=== PATIENT | female | born 1960 | race Caucasian/White ===

== ENCOUNTER 2021-06-19 10:47 | Emergency (ER) | payer BC, OTHER ==
[2021-06-19] MEDS ORDERED: Lidocaine 1% PF 5 ML VIAL ONE (12:15)
== END 2021-06-19 13:35 | disposition home or self-care (01) ==
LOC: CSHERS 10:47
DX: S02.5XXA Fracture of tooth (traumatic), initial encounter for closed fracture (principal); S01.511A Laceration without foreign body of lip, initial encounter; V87.8XXA Person injured in other specified noncollision transport accidents involving motor vehicle (traffic), initial encounter; E03.9 Hypothyroidism, unspecified
CPT/HCPCS: 12011; 70450; 70486; 72125; 93005

== ENCOUNTER 2024-11-27 10:38 | Outpatient (CLI) | payer MEDICARE | END 2024-11-27 10:39 | disposition home or self-care (01) | LOC: CSHULT 10:38 | PROVIDERS: ATTEND Internal Medicine | DX: E04.1 Nontoxic single thyroid nodule (principal) | CPT/HCPCS: 76536 ==